=== PATIENT | male | born 1960 | race Caucasian/White ===

== ENCOUNTER → 2020-12-23 12:58 | Outpatient (CLI) | payer OTHER, SELFPAY | PROVIDERS: PCP Internal Medicine; Referring Provider Physician Assistant; Visit Provider Physician Assistant | DX: R30.0 Dysuria (principal); R35.0 Frequency of micturition | CPT/HCPCS: 87077; 87086; 87186 ==

== ENCOUNTER → 2021-08-26 16:05 | Outpatient (CLI) | payer OTHER, SELFPAY | PROVIDERS: PCP Internal Medicine; Referring Provider Urology; Visit Provider Urology | DX: R30.0 Dysuria (principal) | CPT/HCPCS: 87077; 87086; 87186 ==

== ENCOUNTER → 2021-09-11 11:33 | Outpatient (CLI) | payer OTHER, SELFPAY ==
--- NOTE | 2021-09-11 11:35 | DI.CT.S_ITS ---
PROCEDURE: CT ABDOMEN PELVIS WO/W CON INDICATIONS: Recurring urinary tract infection, left flank pain TECHNIQUE: Optional 5 mm thick noncontrast images acquired from the diaphragm to the symphysis pubis. After the administration of intravenous contrast, 5 mm thick images acquired from the diaphragm to the symphysis pubis after a 10-minute delay. 2 mm thick coronal and sagittal reformats were then performed of the kidneys and ureters. For radiation dose reduction, the following was used: automated exposure control, adjustment of mA and/or kV according to patient size. COMPARISON: None. FINDINGS: Image quality: Excellent. Lung bases: Lung bases are clear. Heart size is normal. Urinary system: Both kidneys are normal in size, without hydronephrosis or nephrolithiasis on pre-contrast images. No perinephric fat stranding. There is normal bilateral renal enhancement. A low-density cyst is present within the lower pole of the right kidney. Renal calyces appear normal in morphology when filled with contrast. Opacified portions of both ureters demonstrate normal caliber. Bladder wall thickness is normal. No calcified bladder stones. Other solid organs: Liver is normal in size and enhancement. Gallbladder is unremarkable . Biliary system is non dilated. Pancreas enhances normally. Spleen is normal in size and enhancement. No adrenal nodules. Peritoneum and bowel: Bowel loops demonstrate normal wall thickness and caliber. The appendix is not visualized; however there is no discrete right lower quadrant fluid or fat stranding to suggest acute appendicitis. There are scattered sigmoid diverticula. No evidence for diverticulitis. No free fluid or air. Nodes and vessels: No retroperitoneal or mesenteric adenopathy by size criteria. Aorta and inferior vena cava are normal in size. There are scattered atheromatous calcifications throughout the aorta and iliac arteries bilaterally. Abdominal wall: There is a small fat containing umbilical hernia. Pelvis: No pathologic free pelvic fluid. No inguinal hernias or adenopathy. Bones: No suspicious bony lesions. No vertebral body compression fractures. IMPRESSION: 1. No hydronephrosis, nephrolithiasis, hydroureter, or ureterolithiasis. 2. No acute intra-abdominal findings. The appendix is not visualized; however there are no ancillary findings to suggest acute appendicitis. Diverticulosis. No acute diverticulitis. Dictated by: Violeta Wyatt M.D. on 09/11/2021 at 12:37 Approved by: Violeta Wyatt M.D. on 09/11/2021 at 12:49
== END ==
PROVIDERS: PCP Internal Medicine; Referring Provider Urology; Visit Provider Urology
DX: N39.0 Urinary tract infection, site not specified (principal); K57.30 Diverticulosis of large intestine without perforation or abscess without bleeding; R10.9 Unspecified abdominal pain; K42.9 Umbilical hernia without obstruction or gangrene; Z87.442 Personal history of urinary calculi
CPT/HCPCS: 74178

== ENCOUNTER → 2021-09-19 14:24 | Outpatient (CLI) | payer OTHER, SELFPAY | PROVIDERS: PCP Internal Medicine; Visit Provider Urology | DX: R30.0 Dysuria (principal) | CPT/HCPCS: 87086 ==

== ENCOUNTER → 2022-06-20 10:32 | Outpatient (CLI) | payer OTHER, SELFPAY | PROVIDERS: PCP Internal Medicine; Visit Provider Urology | DX: N39.0 Urinary tract infection, site not specified (principal); R39.9 Unspecified symptoms and signs involving the genitourinary system; R97.20 Elevated prostate specific antigen [PSA]; Z87.440 Personal history of urinary (tract) infections; Z87.442 Personal history of urinary calculi | CPT/HCPCS: 81002; 87086; 99214 ==

== ENCOUNTER 2022-07-24 12:58 | Emergency (ER) | payer OTHER, SELFPAY ==
[2022-07-24 13:15] VITALS: BP 139/100; PULSE 71; RESP 18; TEMP 36.4; O2SAT 97; BMI 30.9
--- NOTE | 2022-07-24 14:28 | DI.CT.S_ITS ---
PROCEDURE: CT KIDNEY URETER BLADDER (KUB) INDICATIONS: flank pain hx stones TECHNIQUE: Axial sections were acquired from the lung bases to the pubic symphysis. Coronal and sagittal reformats were performed. For radiation dose reduction, the following was used: automated exposure control, adjustment of mA and/or kV according to patient size. COMPARISON: [facility], CT, CT ABDOMEN PELVIS WO/W CON, 09/11/2021, 11:43. FINDINGS: Image quality: Excellent. Lung bases: Unremarkable. Heart: No significant findings. URINARY: Right Kidney: No stones or hydronephrosis. Right Ureter: No hydroureter. Left Kidney: No stones or hydronephrosis. Left Ureter: No hydroureter. Bladder: Normal wall thickness. No stones. ABDOMEN: Liver: Unremarkable. Gallbladder: Unremarkable. Biliary ducts: Unremarkable. Pancreas: Unremarkable. Spleen: Unremarkable. Adrenal Glands: Unremarkable. Stomach and Bowel: Stomach, small bowel loops, and colon are unremarkable. Scattered colonic diverticulosis. No acute diverticulitis. The appendix is not definitively visualized. However, no secondary findings of acute inflammation are noted in the right lower quadrant. Peritoneum: No abnormal intraperitoneal fluid. No free air. Ventral Wall: No hernia. Abdominal Nodes: No enlarged retroperitoneal or mesenteric lymph nodes. Vessels: Scattered atherosclerotic calcifications of the abdominal aorta and iliac vessels without aneurysmal dilatation. PELVIS: Pelvic Organs: Unremarkable. Pelvic Nodes: Unremarkable. Miscellaneous: No inguinal hernias are seen. Bones: No acute vertebral body compression fractures. Multilevel spondylitic changes throughout the imaged spine. No suspicious osseous lesions. IMPRESSION: 1. CT abdomen and pelvis without evidence for acute abnormalities. Specifically, no evidence for hydronephrosis, hydroureter, nephrolithiasis, or ureterolithiasis. No acute inflammatory changes. 2. Scattered colonic diverticulosis without acute diverticulitis. 3. Appendix is not definitively visualized. However, no secondary findings for acute appendicitis. Dictated by: Torito Chadwick M.D. on 07/24/2022 at 15:18 Approved by: Torito Chadwick M.D. on 07/24/2022 at 15:23
--- NOTE | 2022-07-24 14:41 | ED_ITS ---
HPI - Male Genitourinary General Chief complaint: Urogenital-Male Stated complaint: back pain LT side T-4 Time Seen by Provider: 07/24/22 14:25 Source: patient Mode of arrival: Ambulatory History of Present Illness HPI Narrative: 62-year-old male with history of kidney stones, UTI and elevated PSA presents with concern for left low back pain and possible kidney stone but also endorses a heaviness in his chest on and off for the last few days as well as episodes of dizziness associated with this. Patient states he went to the walk-in clinic a few days ago and they advised him to come to the emergency department for further evaluation but it was late in the day and he felt like going home so he went home and took an oxycodone to help his back pain which did not help much. He found that naproxen and ibuprofen were more helpful the following day and his pain had improved somewhat on Thursday, but then his pain returned initially it was up higher in his left flank but he feels like it has migrated down lower to near his left hip--he describes this pain as sharp, he also notes there is an area in his back that if he presses on is very tender and wonders if it is a muscle he states it feels swollen, he does not remember doing anything such as heavy lifting that could have caused a muscle strain or back problem. He states he is had kidney stones in the past but never actually had flank pain with them they always just were something that he urinated out and felt pain with urination. He denies shortness of breath, vision change, coordination difficulty, headache, upper back pain, numbness or tingling in his extremities or any other symptoms Related Data Home Medications Medication Instructions Recorded Confirmed glucosamine HCl 1,500 mg tablet 1,500 mg PO DAILY 08/22/21 06/20/22 magnesium 200 mg tablet 200 mg PO DAILY 08/22/21 06/20/22 potassium chloride PO 08/22/21 06/20/22 atorvastatin 10 mg tablet 10 mg PO DAILY 08/26/21 06/20/22 aspirin 81 mg tablet,delayed 81 mg PO DAILY 06/20/22 06/20/22 release (Enteric Coated Aspirin) Previous Rx's Medication Instructions Recorded tamsulosin 0.4 mg capsule 0.4 mg PO DAILY #30 caps 06/20/22 baclofen 10 mg tablet 10 mg PO TID 10 days #30 tabs 03/23/23 Allergies Allergy/AdvReac Type Severity Reaction Status Date / Time aspirin [ASPIRIN] Allergy Unknown I puff Verified 07/26/22 19:52 up, and can't breathe Patient History Medical History (Updated 07/24/22 @ 16:41 by Virginie Rivera PA-C) Elevated PSA Family history of bladder cancer History of kidney stones History of urinary tract infection Lower urinary tract symptoms Male circumcision Surgical History H/O vasectomy History of appendectomy Social History marital status: number of children: 1 Smoking Status: Never smoker alcohol intake: former caffeine: Yes Type(s) of exercise: other frequency: 1-2 times per week Smoking Status: Never smoker alcohol intake frequency: a few times a month Substance Use Type: does not use Exam Narrative Exam Narrative: GENERAL: 62 year old patient appears stated age. Well-developed patient, in mild distress. HEAD: Atraumatic. Normocephalic. EYES: Pupils equal round and reactive. Extraocular motions intact. No scleral icterus. No injection or drainage. ENT: Nose without bleeding, purulent drainage. Airway patent. NECK: Trachea midline. Non tender CARDIOVASCULAR: Regular rate and rhythm without murmurs, gallops, or rubs. RESPIRATORY: Clear to auscultation. Breath sounds equal bilaterally. No wheezes, rales, or rhonchi. GASTROINTESTINAL: Abdomen soft, there is very slight left lower quadrant tenderness and very slight left flank tenderness, otherwise non-tender, nondistended. EXTREMITIES: No edema or joint tenderness. Pedal pulses are equal bilaterally BACK: Nontender without deformity or crepitance. Slight left low flank tenderness, patient does have an area of notable tenderness over the left paraspinal region in the thoraco lumbar junction, but this is more consistent with a superficial process, no bruising is noted. NEURO: AOx3. SKIN: No rash or erythema of visible areas Initial Vital Signs Initial Vital Signs: Vital Signs Temperature 97.6 F 07/24/22 13:15 Pulse Rate 71 07/24/22 13:15 Respiratory Rate 18 07/24/22 13:15 Blood Pressure 139/100 H 07/24/22 13:15 Pulse Oximetry 97 07/24/22 13:15 Oxygen Delivery Method Room Air 07/24/22 13:15 Course Course Course Narrative: Reviewed all of the results including imaging and labs with the patient and discussed the fact that we do not have a clear cause for his left flank pain, except possibly a soft tissue/musculoskeletal issue. Patient is on board with the plan and agrees regarding follow-up closely with his PCP and returning if he has new worsening or persistent symptoms. 1645 Orders Ordered: ED Orders 07/24/22 14:28 CT kidney ureter bladder (KUB) Stat 07/24/22 15:00 XR chest 1V Stat CBC Auto Diff [Complete Blood Count AUTO DIFF] Stat CMP [Comprehensive Metabolic Panel] Stat Lipase Stat NT-proBNP (BNP-Adult 18+) Stat Troponin & CK Cardiac Panel Stat 07/24/22 15:18 EKG-12 Lead Stat Vital Signs Vital signs: Vital Signs - 8 hr 07/24/22 13:15 07/24/22 15:21 07/24/22 15:22 Temperature 97.6 F Pulse Rate 71 60 Respiratory Rate 18 12 Blood Pressure 139/100 H 160/97 H Pulse Oximetry 97 96 Oxygen Delivery Method Room Air 07/24/22 15:22 07/24/22 15:30 07/24/22 15:30 Temperature Pulse Rate 57 L 59 L Respiratory Rate 13 13 Blood Pressure 149/97 H Pulse Oximetry 96 95 Oxygen Delivery Method 07/24/22 16:00 07/24/22 16:00 07/24/22 16:30 Temperature Pulse Rate 58 L Respiratory Rate 13 Blood Pressure 143/95 H 152/99 H Pulse Oximetry 96 Oxygen Delivery Method 07/24/22 16:30 Temperature Pulse Rate 61 Respiratory Rate 14 Blood Pressure Pulse Oximetry 96 Oxygen Delivery Method MDM - Male Genitourinary Differential Diagnosis Differential diagnosis: Likely urinary tract infection and other (Ureteroli thiasis, nephrolithiasis, muscle strain, ) Medical Records Attestation: I reviewed the patient's medical records. Lab Data Attestation: I reviewed the patient's lab results. 07/24/22 15:00 07/24/22 15:00 Labs: Lab Results 07/24/22 07/24/22 07/24/22 Range/Units 15:00 15:00 15:00 WBC 6.2 (4.5-11.0) X10^3/uL RBC 4.66 (4.5-5.9) X10^6/uL Hgb 15.3 (13.5-17.5) g/dL Hct 44.2 (41-53) % MCV 94.9 (80-100) fL MCH 32.8 (26-34) PG MCHC 34.5 (30-36) % RDW 12.6 (11.6-14.8) % Plt Count 288 (150-400) X10^3/uL Neut % (Auto) 58.5 (50-75) % Lymph % (Auto) 29.8 (25-40) % [place] % (Auto) 8.6 (3-14) % Eos % (Auto) 2.2 (2-4) % Baso % (Auto) 0.9 (0-2) % Neut # (Auto) 3600 (7665-8671) /uL Lymph # (Auto) 1900 (0388-8315) /uL [place] # (Auto) 500 (0-900) /uL Eos # (Auto) 100 (0-450) /uL Baso # (Auto) 100 (0-100) /uL Sodium 136 L (137-145) mmol/L Potassium 4.5 (3.4-5.1) mmol/L Chloride 101 (98-107) mmol/L Carbon Dioxide 29 (22-32) mmol/L BUN 14 (9-20) mg/dL Creatinine 0.85 (0.66-1.25) mg/dL Estimated GFR > 60 (>60) mL/min BUN/Creatinine Ratio 16.5 (6-22) Glucose 96 (80-110) mg/dL Calcium 8.6 (8.4-10.2) mg/dL Total Bilirubin 1.1 (0.2-1.3) mg/dL AST 25 (17-59) IU/L ALT 25 (<50) IU/L Alkaline Phosphatase 63 (38-126) U/L Total Creatine Kinase (55-170) U/L CK-MB (CK-2) CK-MB (CK-2) Rel Index Troponin I (0.01-0.034) ng/mL NT-Pro-B Natriuret Pep (<125) pg/mL Total Protein 7.4 (6.3-8.2) g/dL Albumin 4.2 (3.5-5.0) g/dL Globulin 3.2 (1.7-4.1) g/dL Albumin/Globulin Ratio 1.3 (1.0-2.8) Lipase 70 (23-300) U/L 07/24/22 07/24/22 Range/Units 15:00 15:00 WBC (4.5-11.0) X10^3/uL RBC (4.5-5.9) X10^6/uL Hgb (13.5-17.5) g/dL Hct (41-53) % MCV (80-100) fL MCH (26-34) PG MCHC (30-36) % RDW (11.6-14.8) % Plt Count (150-400) X10^3/uL Neut % (Auto) (50-75) % Lymph % (Auto) (25-40) % [place] % (Auto) (3-14) % Eos % (Auto) (2-4) % Baso % (Auto) (0-2) % Neut # (Auto) (1467-8646) /uL Lymph # (Auto) (2833-5627) /uL [place] # (Auto) (0-900) /uL Eos # (Auto) (0-450) /uL Baso # (Auto) (0-100) /uL Sodium (137-145) mmol/L Potassium (3.4-5.1) mmol/L Chloride (98-107) mmol/L Carbon Dioxide (22-32) mmol/L BUN (9-20) mg/dL Creatinine (0.66-1.25) mg/dL Estimated GFR (>60) mL/min BUN/Creatinine Ratio (6-22) Glucose (80-110) mg/dL Calcium (8.4-10.2) mg/dL Total Bilirubin (0.2-1.3) mg/dL AST (17-59) IU/L ALT (<50) IU/L Alkaline Phosphatase (38-126) U/L Total Creatine Kinase 98 (55-170) U/L CK-MB (CK-2) TNP CK-MB (CK-2) Rel Index TNP Troponin I < 0.012 (0.01-0.034) ng/mL NT-Pro-B Natriuret Pep 127 H (<125) pg/mL Total Protein (6.3-8.2) g/dL Albumin (3.5-5.0) g/dL Globulin (1.7-4.1) g/dL Albumin/Globulin Ratio (1.0-2.8) Lipase (23-300) U/L Urine Dip Bedside Urine Glucose Negative Bedside Urine Bilirubin - Negative Bedside Urine Ketone - Negative Urine Specific [place] 1.015 Bedside Urine Occult Blood - Negative Bedside Urine pH 6 Bedside Urine Protein - Negative Bedside Urine Urobilinogen - Negative Bedside Urine Nitrite - Negative Bedside Urine Leukocytes - Negative Esterase Imaging Data Chest x-ray: My Impression: I agree with radiologist's interpretation Radiologist's Impression: [address] [address] XRay Report Signed Patient: Andrew Perez MR#: [id number] : 1960 Acct:[id number] Age/Sex: 62 / M Date of Service: 07/24/22 Loc: ED Accession Number: [id number] ?? Procedure: XR chest 1V Ordering Provider: Virginie Rivera P.A-C PROCEDURE:? XR CHEST 1V ? INDICATIONS:? chest pain ? TECHNIQUE:? One view of the chest was acquired.? ? COMPARISON:? None. ? FINDINGS:? ? Surgical changes and devices:? None.? ? Lungs and pleura:? Lungs are clear.? No pleural effusions or pneumothorax.? ? Mediastinum:? Mediastinal contours appear normal.? Heart size is normal.? ? Bones and chest wall:? No suspicious bony lesions.? Overlying soft tissues appear unremarkable.? ? IMPRESSION:? No acute cardiopulmonary process. ? ? ? Dictated by: Darrion Minre M.D. on 07/24/2022 at 15:22 ? ? Approved by: Darrion Miner M.D. on 07/24/2022 at 15:25?? CT scan - abdomen/pelvis: My Impression: Agree with radiologist's interpretation Radiologist's Impression: [address] [address] [address] Scan Report Signed Patient: Andrew Perez MR#: [id number] : 1960 Acct:[id number] Age/Sex: 62 / M Date of Service: 07/24/22 Loc: ED Accession Number: [id number] ?? Procedure: CT kidney ureter bladder (KUB) Ordering Provider: Virginie Rivera P.A-C PROCEDURE:? CT KIDNEY URETER BLADDER (KUB) ? INDICATIONS:? flank pain hx stones ? TECHNIQUE:? Axial sections were acquired from the lung bases to the pubic symphysis.? Coronal and sagittal reformats were performed.? For radiation dose reduction, the following was used: ?automated exposure control, adjustment of mA and/or kV according to patient size.? ? COMPARISON:? [facility], CT, CT ABDOMEN PELVIS WO/W CON, 09/11/2021, 11:43. ? FINDINGS:? Image quality:? Excellent.? ? Lung bases:? Unremarkable.? ? Heart:? No significant findings. ? URINARY: Right Kidney: ? No stones or hydronephrosis.? Right Ureter:? No hydroureter.? ? Left Kidney: ? No stones or hydronephrosis. Left Ureter:? No hydroureter.? ? Bladder:? Normal wall thickness. No stones. ? ? ? ABDOMEN: Liver:? Unremarkable.? ? Gallbladder:? Unremarkable.? ? Biliary ducts:? Unremarkable.? ? Pancreas:? Unremarkable.? ? Spleen:? Unremarkable.? ? Adrenal Glands:? Unremarkable.? ? ? Stomach and Bowel:? Stomach, small bowel loops, and colon are unremarkable.? Scattered colonic diverticulosis.? No acute diverticulitis.? The appendix is not definitively visualized. However, no secondary findings of acute inflammation are noted in the right lower quadrant. Peritoneum:? No abnormal intraperitoneal fluid.? No free air.? ? Ventral Wall: ? No hernia.? Abdominal Nodes:? No enlarged retroperitoneal or mesenteric lymph nodes.? Vessels: Scattered atherosclerotic calcifications of the abdominal aorta and iliac vessels without aneurysmal dilatation.? ? PELVIS: Pelvic Organs:? Unremarkable.? ? Pelvic Nodes: Unremarkable. Miscellaneous: No inguinal hernias are seen. ? ? ? Bones:? No acute vertebral body compression fractures. Multilevel spondylitic changes throughout the imaged spine.? No suspicious osseous lesions. ? IMPRESSION:? ? 1. CT abdomen and pelvis without evidence for acute abnormalities.? Specifically, no evidence for hydronephrosis, hydroureter, nephrolithiasis, or ureterolithiasis.? No acute inflammatory changes. ? 2. Scattered colonic diverticulosis without acute diverticulitis. ? 3. Appendix is not definitively visualized.? However, no secondary findings for acute appendicitis.? Dictated by: Torito Chadwick M.D. on 07/24/2022 at 15:18 ? ? Approved by: Torito Chadwick M.D. on 07/24/2022 at 15:23?? ECG Data Attestation: I personally reviewed and interpreted this ECG as follows: Interpretation: Heart rate 61, sinus rhythm with Premature supraventricular complexes, EKG also reviewed by attending physician Rekha FLORES Narrative Medical decision making narrative: 62-year-old male presents with concern for left flank pain present most of the time for the last 3-4 days some relief by naproxen and ibuprofen. Patient also endorsed some intermittent feeling of a heavy sensation in his chest as well as intermittent dizziness that has been mild with no other associated symptoms. Evaluation for possible kidney stone given patient's history was performed including UA and CT KUB. On exam patient had no significant abdominal tender ness but did have some left flank tenderness, labs were also obtained to include CBC CMP troponin and BNP to evaluate for potential cardiac etiologies. These returned unremarkable. Patient's CT scan was also not notable for any abnormalities although he was noted to have spondylosis of the spine. Discussed the fact that we do not have a clear cause for the patient's symptoms with him, also discussed the presence of right bundle branch block on his EKG which was otherwise unremarkable, and advised him to follow up closely with primary care provider, suspect that his recent pain is most likely due to a muscle spasm problem, and prescription for baclofen provided today, encouraged to continue OTC pain medicines try adding acetaminophen. Advised regarding monitoring for new or worsening symptoms, emergency return precautions provided, follow-up plan discussed, all questions answered. Discharge Plan Departure Patient Disposition: Home Clinical Impression: Acute left flank pain, Muscle spasm Activity Restrictions/Additional Instructions: Thank you for letting us be part of your care today in the emergency department. We did a CT scan to evaluate for kidney stones or other problems with your urinary system, the radiologist did not note any abnormalities in your abdomen based on this scan, we also checked your labs today including cardiac labs given that you have been noticing some intermittent chest heaviness the last 3 or 4 days and these looked okay. We also checked her EKG, you do have something called a right bundle branch block although this is most often a benign finding it refers to your electricity pathway in your heart, you can talk to your primary care provider about this more. We also did a chest x-ray which looked fine, and your urine to did not show evidence of infection. Unfortunately I do not have a clear cause of what is causing your left flank discomfort for the last 3 or 4 days, you do have an area of tenderness on exam and it is certainly possible that you have a muscle that was strained or is inflamed, and possibly spasming. You can continue taking [id number] pain medicines as needed for this I would also recommend trying ice and heat alternating and see if this is helpful. I am also going to prescribe a muscle relaxer for you it is very important you do not take this with the other muscle relaxer that you had left over from a previous problem. You also should not take this before driving, operating equipment or if you are drinking any alcohol. There is no evidence of an emergent or life threatening illness at this time, but follow up with your doctor in 1-2 days is recommended nonetheless to continue to rule out serious underlying causes of your symptoms. Please call the office for an appointment. Please return to the Emergency Department for any worsening or persistent symptoms. Please take medications as directed. Prescriptions: New baclofen 10 mg tablet 10 mg PO TID 10 Days Qty: 30 0RF No Action aspirin [Enteric Coated Aspirin] 81 mg tablet,delayed release (DR/EC) 81 mg PO DAILY Patient Comments: Pt states he is okay to take 'a little'. tamsulosin 0.4 mg capsule 0.4 mg PO DAILY Qty: 30 0RF magnesium 200 mg tablet 200 mg PO DAILY glucosamine HCl 1,500 mg tablet 1,500 mg PO DAILY Rx Instructions: administer with a meal potassium chloride PO atorvastatin 10 mg tablet 10 mg PO DAILY Referrals: Babs Hinson MD [Primary Care Provider] - Stand Alone Forms: Patient Portal/API
--- NOTE | 2022-07-24 15:00 | DI.RAD.S_ITS ---
PROCEDURE: XR CHEST 1V INDICATIONS: chest pain TECHNIQUE: One view of the chest was acquired. COMPARISON: None. FINDINGS: Surgical changes and devices: None. Lungs and pleura: Lungs are clear. No pleural effusions or pneumothorax. Mediastinum: Mediastinal contours appear normal. Heart size is normal. Bones and chest wall: No suspicious bony lesions. Overlying soft tissues appear unremarkable. IMPRESSION: No acute cardiopulmonary process. Dictated by: Darrion Miner M.D. on 07/24/2022 at 15:22 Approved by: Darrion Miner M.D. on 07/24/2022 at 15:25
[2022-07-24 15:05] LABS: Add Manual Diff / Slide Review NO; Basophils Absolute Auto 100 /uL (0-100); Basophils Percent Auto 0.9 % (0-2); Eosinophils Absolute Auto 100 /uL (0-450); Eosinophils Percent Auto 2.2 % (2-4); Hematocrit 44.2 % (41-53); Hemoglobin 15.3 g/dL (13.5-17.5); Lymphocytes Absolute Auto 1900 /uL (1100-4500); Lymphocytes Percent Auto 29.8 % (25-40); Mean Corpuscular HGB Conc 34.5 % (30-36); Mean Corpuscular Hemoglobin 32.8 PG (26-34); Mean Corpuscular Volume 94.9 fL (80-100); Monocytes Absolute Auto 500 /uL (0-900); Monocytes Percent Auto 8.6 % (3-14); Neutrophils Absolute Auto 3600 /uL (1500-7000); Neutrophils Percent Auto 58.5 % (50-75); Platelet Count 288 X10^3/uL (150-400); Red Blood Cell Count 4.66 X10^6/uL (4.5-5.9); Red Cell Distribution Width 12.6 % (11.6-14.8); White Blood Cell Count 6.2 X10^3/uL (4.5-11.0)
[2022-07-24 15:21] VITALS: PULSE 60; RESP 12; O2SAT 96
[2022-07-24 15:22] VITALS: BP 160/97; PULSE 57; RESP 13; O2SAT 96
[2022-07-24 15:24] LABS: Alanine Aminotransferase 25 IU/L (<50); Albumin 4.2 g/dL (3.5-5.0); Albumin Globulin Ratio 1.3 (1.0-2.8); Alkaline Phosphatase 63 U/L (38-126); Aspartate Aminotransferase 25 IU/L (17-59); BUN Creatinine Ratio 16.5 (6-22); Bilirubin Total 1.1 mg/dL (0.2-1.3); Blood Urea Nitrogen 14 mg/dL (9-20); Calcium 8.6 mg/dL (8.4-10.2); Carbon Dioxide 29 mmol/L (22-32); Chloride 101 mmol/L (98-107); Estimated Glomerular Filt Rate > 60 mL/min (>60); Globulin 3.2 g/dL (1.7-4.1); Glucose 96 mg/dL (80-110); HEMOLYSIS < 15 (0-50); Lipase 70 U/L (23-300); Potassium 4.5 mmol/L (3.4-5.1); Sodium 136 mmol/L (137-145); Total Protein 7.4 g/dL (6.3-8.2)
[2022-07-24 15:30] VITALS: BP 149/97; PULSE 59; RESP 13; O2SAT 95
[2022-07-24 15:41] LABS: Creatine Kinase 98 U/L (55-170)
[2022-07-24 15:52] LABS: NT-proBNP (BNP-Adult 18+) 127 pg/mL (<125)
[2022-07-24 15:54] LABS: Troponin I < 0.012 ng/mL (0.01-0.034)
[2022-07-24 16:00] VITALS: BP 143/95; PULSE 58; RESP 13; O2SAT 96
[2022-07-24 16:30] VITALS: BP 152/99; PULSE 61; RESP 14; O2SAT 96
== END 2022-07-24 16:55 | disposition home or self-care (01) ==
PROVIDERS: Emergency Provider Student in an Organized Health Care Education/Training Program; PCP Internal Medicine
DX: R10.9 Unspecified abdominal pain (principal); M62.838 Other muscle spasm; R07.9 Chest pain, unspecified
CPT/HCPCS: 36415; 71045; 74176; 80053; 81003; 82550; 83690; 83880; 84484; 85025; 93005; 93010; 99283; 99284

== ENCOUNTER 2022-07-26 19:38 | Emergency (ER) | payer OTHER, SELFPAY ==
[2022-07-26] VITALS (9 sets, daily range): BP systolic 129–168; BP diastolic 76–111; PULSE 66–75; RESP 16; TEMP 36.3–36.6; O2SAT 94–98; BMI 30.9
--- NOTE | 2022-07-26 19:56 | ED_ITS ---
HPI - General Adult General Chief complaint: Abdominal Pain Stated complaint: Back/side pain Time Seen by Provider: 07/26/22 19:56 History of Present Illness HPI narrative: 62-year-old gentleman with a history of hyperlipidemia, kidney stones. he presents with left lower quadrant abdominal pain was seen in ER 2 days ago with workup including CT KUB that did not show hydronephrosis or kidney stone nor dramatic other findings. He was diagnosed with acute back strain and given alan e baclofen. Over the ensuing 48 hours has had increasing left lower quadrant pain is now much more comfortable if he holds his left leg up. Complaining of some spotty areas of paresthesia over his left flank. Notes that he had a large firm bowel movement yesterday but has not had a bowel movement today. There has been no blood in his stool. He has been nauseated and had some emesis this even ing. He denies any fever throughout the episodes. He is not having cough, chest pain, palpitations, headaches. Related Data Home Medications Medication Instructions Recorded Confirmed glucosamine HCl 1,500 mg tablet 1,500 mg PO DAILY 08/22/21 06/20/22 magnesium 200 mg tablet 200 mg PO DAILY 08/22/21 06/20/22 potassium chloride PO 08/22/21 06/20/22 atorvastatin 10 mg tablet 10 mg PO DAILY 08/26/21 06/20/22 aspirin 81 mg tablet,delayed 81 mg PO DAILY 06/20/22 06/20/22 release (Enteric Coated Aspirin) Previous Rx's Medication Instructions Recorded tamsulosin 0.4 mg capsule 0.4 mg PO DAILY #30 caps 06/20/22 baclofen 10 mg tablet 10 mg PO TID 10 days #30 tabs 07/24/22 amoxicillin 875 mg-potassium 1 tab PO BID #20 tabs 07/26/22 clavulanate 125 mg tablet oxycodone-acetaminophen 5 mg-325 1 tab PO Q6H PRN pain #14 tabs 07/26/22 mg tablet Allergies Allergy/AdvReac Type Severity Reaction Status Date / Time aspirin [ASPIRIN] Allergy Unknown I puff Verified 07/26/22 19:52 up, and can't breathe Patient History Medical History (Updated 07/26/22 @ 22:50 by Sera Castellanos MD) Elevated PSA Family history of bladder cancer History of diverticulitis History of kidney stones History of urinary tract infection Lower urinary tract symptoms Male circumcision Surgical History H/O vasectomy History of appendectomy Social History marital status: number of children: 1 Smoking Status: Never smoker alcohol intake: former caffeine: Yes Type(s) of exercise: other frequency: 1-2 times per week Smoking Status: Never smoker alcohol intake frequency: a few times a month Substance Use Type: does not use Exam Initial Vital Signs Initial Vital Signs: Vital Signs Temperature 97.4 F L 07/26/22 19:50 Pulse Rate 73 07/26/22 19:50 Respiratory Rate 16 07/26/22 19:50 Blood Pressure 168/111 H 07/26/22 19:50 Pulse Oximetry 98 07/26/22 19:50 Oxygen Delivery Method Room Air 07/26/22 19:50 General: Healthy appearing, in mild distress. Able to give a complete and coherent history. Well-nourished well-developed HEENT: Moist mucous membranes, normal sclera with reactive pupils, Respiratory: Lungs are clear to auscultation, no wheezing no rales no rhonchi. Full and symmetrical air movement Cardiac: Regular rate and rhythm no murmurs no bruits Abdomen: Soft, in the left lower quadrant and left flank without rebound or tenderness, decreased bowelTones, mild distention overall. Skin: Warm and dry, no rashes Neurologic: Grossly neurologically intact with no obvious asymmetries or a bnormalities Extremities: No trauma, well perfused Psych: Cooperative, appropriate insight and affect Course Orders Ordered: ED Orders 07/26/22 19:58 CT abdomen pelvis w con Stat 07/26/22 20:07 Complete Blood Count AUTO DIFF Stat Comprehensive Metabolic Panel Stat Lipase Stat 07/26/22 20:18 EKG-12 Lead Stat Hydromorphone HCl (Hydromorphone 0.5 Mg Inj) 0.5 mg IV Q15MIN PRN PRN Reason: Pain, Last Admin: 07/26/22 20:10 Dose: 0.5 mg Documented By: BS Discontinued Medications Sodium Chloride (Normal Saline 0.9%) 1,000 mls @ 1,000 mls/hr IV BOLUS ONE Stop: 07/26/22 20:56 Last Admin: 07/26/22 20:10 Dose: 1,000 mls/hr Documented By: BHAVNA Ondansetron HCl (Ondansetron 4 Mg/2 Ml Inj) 4 mg IV NOW ONE Stop: 07/26/22 19:58 Last Admin: 07/26/22 20:10 Dose: 4 mg Documented By: BHAVNA Vital Signs Vital signs: Vital Signs - 8 hr 07/26/22 19:50 Temperature 97.4 F L Pulse Rate 73 Respiratory Rate 16 Blood Pressure 168/111 H Pulse Oximetry 98 Oxygen Delivery Method Room Air Medical Decision Making Lab Data 07/26/22 20:07 07/26/22 20:07 Labs: Lab Results 07/26/22 07/26/22 Range/Units 20:07 20:07 WBC 7.6 (4.5-11.0) X10^3/uL RBC 4.76 (4.5-5.9) X10^6/uL Hgb 15.6 (13.5-17.5) g/dL Hct 44.8 (41-53) % MCV 94.2 (80-100) fL MCH 32.7 (26-34) PG MCHC 34.7 (30-36) % RDW 12.9 (11.6-14.8) % Plt Count 291 (150-400) X10^3/uL Neut % (Auto) 66.2 (50-75) % Lymph % (Auto) 22.5 L (25-40) % Cross % (Auto) 7.9 (3-14) % Eos % (Auto) 2.6 (2-4) % Baso % (Auto) 0.8 (0-2) % Neut # (Auto) 5000 (8585-7403) /uL Lymph # (Auto) 1700 (2552-0209) /uL Cross # (Auto) 600 (0-900) /uL Eos # (Auto) 200 (0-450) /uL Baso # (Auto) 100 (0-100) /uL Sodium 137 (137-145) mmol/L Potassium 4.2 (3.4-5.1) mmol/L Chloride 102 (98-107) mmol/L Carbon Dioxide 28 (22-32) mmol/L BUN 20 (9-20) mg/dL Creatinine 0.80 (0.66-1.25) mg/dL Estimated GFR > 60 (>60) mL/min BUN/Creatinine Ratio 25.0 H (6-22) Glucose 109 (80-110) mg/dL Calcium 8.7 (8.4-10.2) mg/dL Total Bilirubin 0.9 (0.2-1.3) mg/dL AST 26 (17-59) IU/L ALT 25 (<50) IU/L Alkaline Phosphatase 63 (38-126) U/L Total Protein 7.7 (6.3-8.2) g/dL Albumin 4.4 (3.5-5.0) g/dL Globulin 3.3 (1.7-4.1) g/dL Albumin/Globulin Ratio 1.3 (1.0-2.8) Lipase 63 (23-300) U/L Imaging Data CT scan - abdomen/pelvis: Radiologist's Impression: FINDINGS:? Image quality:? Excellent.? ? Lung bases:? Unremarkable.? ? Heart:? No significant findings. ? ? ABDOMEN: Liver: Diffuse fatty liver infiltration is noted.? The liver is normal in size and demonstrates no suspicious lesions. Gallbladder:? Unremarkable.? ? Biliary ducts:? Unremarkable.? ? Pancreas:? Unremarkable.? ? Spleen:? Unremarkable.? ? Incidental note is made of an accessory splenule along the hilum of the primary spleen. Adrenal Glands:? Unremarkable.? ? Kidneys and Ureters:? Unremarkable.? ? ? Stomach and Bowel:? Moderate wall thickening can be seen involving the sigmoid colon, with mild surrounding inflammatory change.? The appearance is overall slightly worse than on the 07/24/2022 examination. The colon is otherwise unremarkable. No dilated loops of small bowel are seen. The stomach is relatively decompressed, limiting its evaluation. Peritoneum:? No peritoneal abscess is seen.? No abnormal intraperitoneal fluid.? No free air.? ? Ventral Wall:? There is a moderate fat containing periumbilical hernia. Abdominal Nodes:? No retroperitoneal or mesenteric adenopathy by size criteria.? Vessels:? Aorta and inferior vena cava are normal in size.? ? PELVIS: Pelvic Organs:? Unremarkable.? ? Bladder:? Unremarkable.? ? Pelvic Nodes: No enlarged lymph nodes.? Miscellaneous:? Mild bilateral fat containing inguinal hernias are seen. ? Bones:? Acir-gq-mwqwwhcj dextroconvex lumbar scoliosis can be seen.? Multiple levels of lumbar spine degenerative change are seen.? Milder degenerative changes are seen elsewhere.? ? ? IMPRESSION:? ? Sigmoid diverticulitis, which is slightly more prominent on the current study than on the recent prior. ? No findings of perforation or abscess can be seen. ? Additional findings:? Fatty liver infiltration Accessory splenule Dextroconvex scoliosis Moderate fat containing periumbilical hernia Multiple levels of lumbar spine degenerative change Mild bilateral fat containing inguinal hernias ? Dictated by: Pito Trejo M.D. on 07/26/2022 at 19:27 ? ? MDM Narrative Medical decision making narrative: CC: Left lower quadrant pain. Acute, uncertain prognosis, 3rd medical evaluation for same this week Complicating co-morbidities: history of kidney stones Corroborating data: Data collected from: patient, Differential considered: kidney stone, diverticulitis, diverticular abscess, bowel obstruction,Appendicitis, pyelonephritis Exam documented above, pertinent findings include: tenderness in left lower quadrant without guarding or rebound Lab Test results independently reviewed as above. Pertinent findings: CBC is unremarkable with no significant leukocytosis. No anemia. Chemistries are unremarkable. Imaging studies independently reviewed: CT scan of the abdomen and pelvis show s Developing diverticulitis EKG: SinusRhythm, right bundle branch block, no acute ischemia Treatments: IV fluids, parenteral narcotics Discussion: on re-evaluation patient has moderate left lower quadrant tenderness with CT suggesting developing diverticulitis. CT scan done on the very s pecifically noted diverticulosis without diverticulitis. There is no evidence of abscess. No evidence of sepsis. He is slightly constipated. Will treat him with Augmentin for 10 days. Will give him a brief course Percocet to help with pain also talked about the importance of stool softeners and he has MiraLax at home. Reviewed reasons to return to the emergency department and he is safe for discharge home Disposition: see below, along with detailed discharge instructions that have been reviewed with patient as well as indications for ED re-evaluation and additional outpatient follow up Discharge Plan Departure Patient Disposition: Home Clinical Impression: Diverticulitis Instructions: DI for Diverticulitis Activity Restrictions/Additional Instructions: thank you for coming in today your CT scan today suggests developing diverticulitis. This was not seen on the CT scan 2 days ago. Your blood work is reassuring. There is no sign of overwhelming infection or need for hospitalization . You do need a course of antibiotics and I have given you a prescription for 10 days of amoxicillin along with the 1st dose in the emergency department. I have also given you a small course of Percocet to help with pain. While it can help with pain it can also cause constipation which can actually make her pain worse. Please make sure that you are also using MiraLax, enough that you are having relatively soft stools. If you find that you are getting worse or develop any new symptoms, please feel free to return to the emergency department for further evaluation. Prescriptions: New amoxicillin-pot clavulanate 875-125 mg tablet 1 tab PO BID Qty: 20 0RF oxycodone-acetaminophen 5-325 mg tablet 1 tab PO Q6H PRN (Reason: pain) Qty: 14 0RF No Action baclofen 10 mg tablet 10 mg PO TID 10 Days Qty: 30 0RF aspirin [Enteric Coated Aspirin] 81 mg tablet,delayed release (DR/EC) 81 mg PO DAILY Patient Comments: Pt states he is okay to take 'a little'. tamsulosin 0.4 mg capsule 0.4 mg PO DAILY Qty: 30 0RF magnesium 200 mg tablet 200 mg PO DAILY glucosamine HCl 1,500 mg tablet 1,500 mg PO DAILY Rx Instructions: administer with a meal potassium chloride PO atorvastatin 10 mg tablet 10 mg PO DAILY Referrals: Babs Hinson MD [Primary Care Provider] - Stand Alone Forms: Patient Portal/API
--- NOTE | 2022-07-26 19:58 | DI.CT.S_ITS ---
PROCEDURE: CT ABDOMEN PELVIS W CON INDICATIONS: continued LLQ pain. CT KUB on 07/24 TECHNIQUE: After the administration of IV contrast, axial sections were acquired from the lung bases to the pubic symphysis. Coronal and sagittal reformats were performed. For radiation dose reduction, the following was used: automated exposure control, adjustment of mA and/or kV according to patient size. COMPARISON: [facility], CR, XR CHEST 1V, 07/24/2022, 14:59. [facility], CT, CT KIDNEY URETER BLADDER (KUB), 07/24/2022, 14:33. [facility], CT, CT ABDOMEN PELVIS WO/W CON, 09/11/2021, 11:43. FINDINGS: Image quality: Excellent. Lung bases: Unremarkable. Heart: No significant findings. ABDOMEN: Liver: Diffuse fatty liver infiltration is noted. The liver is normal in size and demonstrates no suspicious lesions. Gallbladder: Unremarkable. Biliary ducts: Unremarkable. Pancreas: Unremarkable. Spleen: Unremarkable. Incidental note is made of an accessory splenule along the hilum of the primary spleen. Adrenal Glands: Unremarkable. Kidneys and Ureters: Unremarkable. Stomach and Bowel: Moderate wall thickening can be seen involving the sigmoid colon, with mild surrounding inflammatory change. The appearance is overall slightly worse than on the 07/24/2022 examination. The colon is otherwise unremarkable. No dilated loops of small bowel are seen. The stomach is relatively decompressed, limiting its evaluation. Peritoneum: No peritoneal abscess is seen. No abnormal intraperitoneal fluid. No free air. Ventral Wall: There is a moderate fat containing periumbilical hernia. Abdominal Nodes: No retroperitoneal or mesenteric adenopathy by size criteria. Vessels: Aorta and inferior vena cava are normal in size. PELVIS: Pelvic Organs: Unremarkable. Bladder: Unremarkable. Pelvic Nodes: No enlarged lymph nodes. Miscellaneous: Mild bilateral fat containing inguinal hernias are seen. Bones: Wjdn-pt-quzvtupc dextroconvex lumbar scoliosis can be seen. Multiple levels of lumbar spine degenerative change are seen. Milder degenerative changes are seen elsewhere. IMPRESSION: Sigmoid diverticulitis, which is slightly more prominent on the current study than on the recent prior. No findings of perforation or abscess can be seen. Additional findings: Fatty liver infiltration Accessory splenule Dextroconvex scoliosis Moderate fat containing periumbilical hernia Multiple levels of lumbar spine degenerative change Mild bilateral fat containing inguinal hernias Dictated by: Pito Trejo M.D. on 07/26/2022 at 19:27 Approved by: Pito Trejo M.D. on 07/26/2022 at 19:30
[2022-07-26] MEDS: ONDANSETRON 4 MG/2 ML INJ IV (20:10)
[2022-07-26] MEDS: HYDROMORPHONE 0.5 MG INJ IV (20:10)
[2022-07-26] MEDS: SODIUM CHLORIDE 0.9% 1,000 ML 1000 ML IV (20:10)
[2022-07-26 20:18] LABS: Add Manual Diff / Slide Review NO; Basophils Absolute Auto 100 /uL (0-100); Basophils Percent Auto 0.8 % (0-2); Eosinophils Absolute Auto 200 /uL (0-450); Eosinophils Percent Auto 2.6 % (2-4); Hematocrit 44.8 % (41-53); Hemoglobin 15.6 g/dL (13.5-17.5); Lymphocytes Absolute Auto 1700 /uL (1100-4500); Lymphocytes Percent Auto 22.5 % (25-40); Mean Corpuscular HGB Conc 34.7 % (30-36); Mean Corpuscular Hemoglobin 32.7 PG (26-34); Mean Corpuscular Volume 94.2 fL (80-100); Monocytes Absolute Auto 600 /uL (0-900); Monocytes Percent Auto 7.9 % (3-14); Neutrophils Absolute Auto 5000 /uL (1500-7000); Neutrophils Percent Auto 66.2 % (50-75); Platelet Count 291 X10^3/uL (150-400); Red Blood Cell Count 4.76 X10^6/uL (4.5-5.9); Red Cell Distribution Width 12.9 % (11.6-14.8); White Blood Cell Count 7.6 X10^3/uL (4.5-11.0)
[2022-07-26 20:33] LABS: Alanine Aminotransferase 25 IU/L (<50); Albumin 4.4 g/dL (3.5-5.0); Albumin Globulin Ratio 1.3 (1.0-2.8); Alkaline Phosphatase 63 U/L (38-126); Aspartate Aminotransferase 26 IU/L (17-59); Bilirubin Total 0.9 mg/dL (0.2-1.3); Blood Urea Nitrogen 20 mg/dL (9-20); Calcium 8.7 mg/dL (8.4-10.2); Carbon Dioxide 28 mmol/L (22-32); Chloride 102 mmol/L (98-107); Estimated Glomerular Filt Rate > 60 mL/min (>60); Globulin 3.3 g/dL (1.7-4.1); Glucose 109 mg/dL (80-110); HEMOLYSIS 16 (0-50); Lipase 63 U/L (23-300); Potassium 4.2 mmol/L (3.4-5.1); Sodium 137 mmol/L (137-145); Total Protein 7.7 g/dL (6.3-8.2)
[2022-07-26] MEDS: AMOXICILLIN/CLAV 875/125 MG 1 TAB PO (22:43)
[2022-07-26] MEDS: OXYCODONE/APAP 5/325 PREPACK 1 BOTTLE MISC (22:43)
== END 2022-07-26 22:57 | disposition home or self-care (01) ==
PROVIDERS: Emergency Provider Emergency Medicine; PCP Internal Medicine
DX: K57.92 Diverticulitis of intestine, part unspecified, without perforation or abscess without bleeding (principal); R10.32 Left lower quadrant pain; Z87.442 Personal history of urinary calculi
CPT/HCPCS: 36415; 74177; 80053; 83690; 85025; 93005; 93010; 96361; 96374; 96375; 99284; J1170; J2405; Q9967

== ENCOUNTER → 2022-12-08 16:19 | Outpatient (CLI) | payer OTHER, SELFPAY ==
--- NOTE | 2022-12-08 16:24 | DI.RAD.S_ITS ---
PROCEDURE: XR KUB INDICATIONS: Kidney stone TECHNIQUE: One view of the abdomen acquired. COMPARISON: None. FINDINGS: Surgical changes and devices: None. Bowel: Bowel gas pattern is normal. Soft tissues: No suspicious abdominal calcifications. Visualized solid organ contours appear normal in size. Bones: No suspicious bony lesions. Pokf-ln-wjdwcalr dextroscoliosis of thoracolumbar spine is seen centered at L1-2 level. IMPRESSION: No definite renal stone is seen. No evidence of bowel obstruction or gross free air. Dictated by: Leonid Bro M.D. on 12/09/2022 at 12:11 Approved by: Leonid Bro M.D. on 12/09/2022 at 12:12
[2022-12-10 06:56] LABS: PSA, Total 4.9 ng/mL (0.0-4.0)
== END ==
PROVIDERS: PCP Internal Medicine; Referring Provider Urology; Visit Provider Urology
DX: R97.20 Elevated prostate specific antigen [PSA] (principal); Z87.442 Personal history of urinary calculi; M41.9 Scoliosis, unspecified
CPT/HCPCS: 74018; 84153; 84154

== ENCOUNTER → 2023-01-12 08:37 | Outpatient (CLI) | payer OTHER, SELFPAY ==
--- NOTE | 2023-01-12 | DI.MRI.S_ITS ---
PROCEDURE: MR PELVIS WO/W CON INDICATIONS: ELEVATED PSA TECHNIQUE: Coronal HASTE, axial T1 FSE with fat saturation, 3-plane nonbreath-hold T2 FSE. After the administration of contrast, dynamic axial, delayed axial and coronal VIBE or 2-D FLASH with fat saturation through the pelvis. Optional diffusion weighted imaging and ADC may be performed. COMPARISON: [facility], CT, CT ABDOMEN PELVIS W CON, 07/26/2022, 20:05. FINDINGS: Image quality: Diffusion weighted and dynamic contrast enhanced images are diagnostic. Image quality is degraded by motion artifact on multiple sequences however. Prostate: Gland size is 4.5 x 4.3 x 4.5 cm; ellipsoid gland volume is 45 mL. Mild linear and wedge-shaped ADC hypointensities present within the prostate peripheral zone with indistinct T2 correlates (PI-RADS 2 findings). Enlargement of the prostate transitional zone with findings typical of benign prostatic hyperplasia. No large lesion strongly stands out against background parenchymal changes of BPH on T2 weighted images (PI-RADS 2 findings). Genitourinary system: Bladder wall thickness is normal. Distal ureters are non distended. Bowel and peritoneum: No pathologic free pelvic fluid. Inferior colon and small bowel loops are normal in caliber. Colonic diverticulosis without MR evidence of acute diverticulitis. Nodes and vessels: No pelvic or inguinal adenopathy by size criteria. Iliac vessels are normal in caliber. Bones: Marrow demonstrates normal overall signal, without lesions to suggest metastases. IMPRESSION: 1. No large or highly suspicious focal prostate lesion to direct biopsy. There is enlargement of the prostate transitional zone with findings typical of benign prostatic hyperplasia, with prostate volume estimated at 45 cc. 2. No suspicious lymph nodes identified in the imaged pelvis. Dictated by: Pedro Lawson M.D. on 01/12/2023 at 13:10 Approved by: Pedro Lawson M.D. on 01/12/2023 at 13:25
== END ==
PROVIDERS: PCP Internal Medicine; Referring Provider Urology; Visit Provider Urology
DX: N40.0 Benign prostatic hyperplasia without lower urinary tract symptoms (principal); R97.20 Elevated prostate specific antigen [PSA]
CPT/HCPCS: 72197; A9579

== ENCOUNTER → 2023-04-13 13:34 | Outpatient (CLI) | payer OTHER, SELFPAY | PROVIDERS: PCP Internal Medicine; Visit Provider Urology | DX: R39.9 Unspecified symptoms and signs involving the genitourinary system (principal); R97.20 Elevated prostate specific antigen [PSA]; R82.81 Pyuria; Z87.442 Personal history of urinary calculi; Z87.440 Personal history of urinary (tract) infections; Z80.52 Family history of malignant neoplasm of bladder | CPT/HCPCS: 81002; 87077; 87086; 87186; 99214 ==

== ENCOUNTER 2023-09-25 13:35 | Day surgery (SDC) | payer MEDICARE, OTHER, SELFPAY ==
--- NOTE | 2023-09-25 | PATH_ITS ---
[facility] Accession Number: [id number] No. of containers..01 Tissue . 01 Material submitted: . esophagus, E-G Junction - GE JUNCTION . 01 Diagnosis: GASTROESOPHAGEAL JUNCTION, BIOPSY: Squamous mucosa with no diagnostic abnormality. No glandular mucosa present for evaluation. Intraepithelial eosinophils are not increased. Negative for dysplasia or malignancy. [facility] 10/01/2023 1044 Local . 01 Electronically signed: . Amarjit Spencer MD, PhD, Pathologist NPI- [id number] . 01 Gross description: . GE JUNCTION: Received in formalin is 1 fragment(s) of ling, soft tissue measuring 0.2 x 0.2 x 0.2 cm submitted entirely in 1 cassette(s) /BARI 09/29/2023 2304 Local . 01 Pathologist provided ICD-10: R13.19 . 01 CPT . 543818 Specimen Comment: A courtesy copy of this report has been sent to [phone] Performed at: [address] [address], [place], [place] [id number] MD Dakota Vizcaino MD Phone: [phone]
[2023-09-25] MEDS: LACTATED RINGERS 1,000 ML 42 ML IV (14:03)
[2023-09-25 14:04] VITALS: BP 138/94; PULSE 59; RESP 16; TEMP 36.2; O2SAT 97
--- NOTE | 2023-09-25 15:06 | P.HP_ITS ---
History of Present Illness History of Present Illness Date Patient Seen: 09/25/23 Time Patient Seen: 15:06 Chief complaint: EGD Narrative: 63-year-old man here for diagnostic upper endoscopy. He has a known hiatal hernia and over the last few months he has had increasingly difficulty swallowing. Food seems to get hung up in his mid esophagus. Not much in terms of reflux symptoms he is currently taking omeprazole which seems to be improving his problem. Last upper endoscopy 10 years ago. No unintentional weight loss hematemesis. Nonsmoker [facility] Medical History Rising PSA level History of diverticulitis History of kidney stones Lower urinary tract symptoms History of urinary tract infection Family history of bladder cancer Elevated PSA Male circumcision Surgical History H/O vasectomy History of appendectomy Social History marital status: number of children: 1 Smoking Status: Never smoker alcohol intake: former caffeine: Yes Type(s) of exercise: other frequency: 1-2 times per week Meds Home Medications and Allergies Home Medications Medication Instructions Recorded Confirmed Type glucosamine HCl 1,500 mg tablet 1,500 mg PO DAILY 08/22/21 09/25/23 History magnesium 200 mg tablet 200 mg PO DAILY 08/22/21 09/25/23 History potassium chloride PO 08/22/21 07/13/23 History atorvastatin 10 mg tablet 10 mg PO DAILY 08/26/21 09/25/23 History aspirin 81 mg tablet,delayed 81 mg PO DAILY 06/20/22 09/25/23 History release (Enteric Coated Aspirin) Allergies Allergy/AdvReac Type Severity Reaction Status Date / Time aspirin [ASPIRIN] Allergy Unknown I puff Verified 09/25/23 14:03 up, and can't breathe Exam Vital Signs (past 8 hours): - 09/25/23 14:04 09/25/23 14:04 Temperature 97.1 F L Pulse Rate 59 L Respiratory Rate 16 Blood Pressure 138/94 H Pulse Oximetry 97 Oxygen Delivery Method Room Air Room Air Oxygen Delivery Method Room Air Narrative Exam Narrative: General adult man alert oriented no acute distress Chest nonlabored respiration Extremities warm well perfused Assessment & Plan Assessment and plan (1) Esophageal dysphagia: Status: Acute Assessment & Plan narrative: Diagnostic esophagogastroduodenoscopy with biopsy possible dilation. Overview procedure discussed. Procedural risks including hemorrhage, esophageal injury, aspiration reviewed. He provides his consent to proceed.
--- NOTE | 2023-09-25 15:27 | PM.OP.EGD ---
Operative Date/Time/Diagnoses Date of procedure: 09/25/23 Time of procedure: 15:27 Pre-op diagnosis: Esophageal dysphagia Post-op diagnosis: other (Esophagitis) Procedure & Clinicians Study performed: Diagnostic esophagogastroduodenoscopy Same procedure as scheduled: Yes Indications: Esophageal dysphagia Surgeon: Naun Heard Procedure Notes Procedure in detail: The history and physical was performed/updated and the patient is ASA class is 2. The procedure was discussed in detail with the patient. Potential risks complications including infection, bleeding, missed diagnosis, perforation, need for surgery, and were explained. Their questions were answered and informed consent was obtained. Patient placed in left lateral decubitus position. Time out was performed. Procedural sedation was administered by Anesthesia. A bite block was placed. the scope was inserted into the mouth and advanced through the esophagus and into the stomach. The pylorus was intubated and the duodenum was examined to the 2nd portion. The scope was then withdrawn into the stomach and was retroflexed. The stomach was decompressed and scope was withdrawn slowly through the esophagus. Biopsies of the GE junction were performed with forceps FINDINGS -mild esophagitis of the distal esophagus. -small hiatal hernia -no esophageal stricture The patient tolerated the procedure well and will be discharged when they meet criteria. Specimen(s): other (GE junction) Impression: Esophagitis Post-procedure Plan for aftercare: Continue omeprazole once daily for esophagitis Disposition: same day surgery
[2023-09-25 15:32] VITALS: BP 118/82; PULSE 63; RESP 12; TEMP 36.2; O2SAT 94
[2023-09-25 15:36] VITALS: BP 125/83; PULSE 58; RESP 14; O2SAT 94
[2023-09-25 15:38] VITALS: BP 126/91; PULSE 59; RESP 12; O2SAT 93
[2023-09-25 15:41] VITALS: PULSE 66; RESP 13; O2SAT 95
[2023-09-25 15:43] VITALS: BP 126/89; PULSE 54; RESP 11; O2SAT 93
== END 2023-09-25 16:09 | disposition home or self-care (01) ==
PROVIDERS: Family Provider Internal Medicine; PCP Internal Medicine; Referring Provider Surgery; Visit Provider Surgery
PROC: 0DJ08ZZ Inspection of Upper Intestinal Tract, Via Natural or Artificial Opening Endoscopic (ICD-10-PCS; CPT 43235; principal; 2023-09-25 14:30)
DX: K20.90 Esophagitis, unspecified without bleeding (principal); K44.9 Diaphragmatic hernia without obstruction or gangrene
CPT/HCPCS: 43239; 93005; J2704; J3010

== ENCOUNTER → 2024-01-19 13:07 | Outpatient (CLI) | payer MEDICARE, OTHER, SELFPAY | PROVIDERS: Family Provider Internal Medicine; PCP Internal Medicine; Visit Provider Urology | DX: Z87.440 Personal history of urinary (tract) infections (principal); R39.9 Unspecified symptoms and signs involving the genitourinary system | CPT/HCPCS: 87086 ==

== ENCOUNTER → 2024-05-17 13:53 | Outpatient (CLI) | payer MEDICARE, OTHER, SELFPAY | PROVIDERS: Family Provider Internal Medicine; PCP Internal Medicine; Visit Provider Urology | DX: N39.0 Urinary tract infection, site not specified (principal); N40.1 Benign prostatic hyperplasia with lower urinary tract symptoms; N13.8 Other obstructive and reflux uropathy; R97.20 Elevated prostate specific antigen [PSA]; R39.12 Poor urinary stream; R39.15 Urgency of urination; Z87.442 Personal history of urinary calculi; Z87.440 Personal history of urinary (tract) infections; Z80.52 Family history of malignant neoplasm of bladder | CPT/HCPCS: 51798; 81002; 87086; 99214 ==

== ENCOUNTER → 2025-03-28 15:13 | Outpatient (CLI) | payer MEDICARE, OTHER, SELFPAY ==
--- NOTE | 2025-03-28 15:16 | DI.RAD.S_ITS ---
PROCEDURE: XR FOOT RT MIN 3V INDICATIONS: PAIN IN HANDS, R FOOT TECHNIQUE: 3 views of the foot were acquired. COMPARISON: [facility], LAITH, XR FOOT 3+ VIEWS RIGHT, 10/21/2022, 10:38. FINDINGS: Bones: No acute fracture parrot large bunion and small bunionette. 46??? of hallux valgus. Medial 1st metatarsal sesamoid overlies the lateral margin of the 1st metatarsal head and neck. Marked 1st MTP joint space narrowing. Diffuse midfoot and tarsometatarsal joint space narrowing and osteophytes. Erosions and cystic changes are noted in the medial 1st metatarsal head. 2nd and 3rd hammertoes. Soft tissues: Moderate soft tissue swelling. IMPRESSION: No acute fracture. Hallux valgus. 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 Soft tissue swelling. The Dictated by: Erika Galvan M.D. on 03/29/2025 at 11:28 Approved by: Erika Galvan M.D. on 03/29/2025 at 11:30
--- NOTE | 2025-03-28 15:16 | DI.RAD.S_ITS ---
PROCEDURE: XR HAND RT MIN 3V INDICATIONS: PAIN IN HANDS, R FOOT TECHNIQUE: 3 views of the hand(s) acquired. COMPARISON: None. FINDINGS AND IMPRESSION: Moderate to severe arthritic changes particularly involving the STT and 1st CMC joints. There is also involvement of scattered interphalangeal joints particularly the 3rd and 4th rays, other CMC joints, midcarpal row, and radiocarpal region. Numerous subchondral lucencies are present likely a combination of erosions and degenerative geodes. Possible mild TFCC chondrocalcinosis. If there is high concern for further derangement, consider MRI evaluation. Dictated by: Edwar Raines M.D. on 03/28/2025 at 16:17 Approved by: Edwar Raines M.D. on 03/28/2025 at 16:19
--- NOTE | 2025-03-28 15:16 | DI.RAD.S_ITS ---
PROCEDURE: XR HAND LT MIN 3V INDICATIONS: PAIN IN HANDS, R FOOT TECHNIQUE: 3 views of the hand(s) acquired. COMPARISON: None. FINDINGS AND IMPRESSION: Moderate to severe diffuse arthritic changes worst at the 1st CMC. There is also involvement of the midcarpal joints STT, radiocarpal joint, and scattered MCP and interphalangeal joints. Many subchondral lucencies are present likely a combination of degenerative geodes and erosions. Old 5th metacarpal fracture deformity. Focal soft tissue prominence and possible swelling in the webspace between the 1st and 2nd digits. Correlate with clinical exam. If there is high concern for further derangement, consider MRI evaluation. Dictated by: Edwar Raines M.D. on 03/28/2025 at 16:19 Approved by: Edwar Raines M.D. on 03/28/2025 at 16:21
== END ==
PROVIDERS: PCP Internal Medicine; Referring Provider Internal Medicine; Visit Provider Internal Medicine
DX: M19.071 Primary osteoarthritis, right ankle and foot (principal); M20.11 Hallux valgus (acquired), right foot; M20.41 Other hammer toe(s) (acquired), right foot; M25.571 Pain in right ankle and joints of right foot; M25.50 Pain in unspecified joint; M79.643 Pain in unspecified hand; R60.9 Edema, unspecified; M79.89 Other specified soft tissue disorders
CPT/HCPCS: 73130; 73630

== ENCOUNTER → 2025-04-04 14:45 | Outpatient (CLI) | payer MEDICARE, OTHER, SELFPAY ==
--- NOTE | 2025-04-04 14:48 | DI.US.S_ITS ---
PROCEDURE: US PERIPH VENOUS LOW EXTREM RT INDICATIONS: PAIN TECHNIQUE: Real-time imaging, as well as color and pulse Doppler interrogation, were performed of the lower extremity deep veins from the inguinal ligament to the popliteal fossa, with documentation of the visualized calf veins. COMPARISON: None. FINDINGS: The common femoral, femoral, popliteal, and the visualized calf veins are normally compressible, and free of intraluminal thrombus. Color and pulse Doppler demonstrate normal phasic intraluminal flow. There is normal augmentation response to distal compression maneuver. IMPRESSION: No findings of lower extremity deep venous thrombosis. Dictated by: Pito Trejo M.D. on 04/04/2025 at 15:08 Approved by: Pito Trejo M.D. on 04/04/2025 at 15:08
== END ==
LOC: US 14:46
PROVIDERS: PCP Internal Medicine; Referring Provider Internal Medicine; Visit Provider Internal Medicine
DX: M25.571 Pain in right ankle and joints of right foot (principal); R60.9 Edema, unspecified; M79.643 Pain in unspecified hand; M25.50 Pain in unspecified joint
CPT/HCPCS: 93971